=== PATIENT | female | born 1985 | race Caucasian/White ===

== ENCOUNTER 2018-02-23 22:00 | Inpatient (IN) ==
[2018-02-23 23:14] LABS: Baso # (Auto) 0.1 th/mm3 (0.0-0.2); Baso % (Auto) 0.7 % (0.0-2.0); Eos # (Auto) 0.1 th/mm3 (0.0-0.4); Eos % (Auto) 1.5 % (0.0-4.0); Hematocrit 40.9 % (35.0-46.0); Hemoglobin 14.3 gm/dL (11.6-15.3); Lymph # (Auto) 3.5 th/mm3 (1.0-4.8); Lymph % (Auto) 40.1 % (9.0-44.0); Mean Corpuscular HGB Conc 34.9 % (32.0-36.0); Mean Corpuscular Hemoglobin 31.6 pg (27.0-34.0); Mean Corpuscular Volume 90.6 fL (80.0-100.0); Mean Platelet Volume 9.8 fL (7.0-11.0); Mono # (Auto) 0.5 th/mm3 (0.0-0.9); Mono % (Auto) 5.7 % (0.0-8.0); Neut # (Auto) 4.6 th/mm3 (1.8-7.7); Platelet Count 388 th/mm3 (150-450); Red Blood Count 4.52 mil/mm3 (4.00-5.30); Red Cell Distribution Width 13.7 % (11.6-17.2); White Blood Count 8.8 th/mm3 (4.0-11.0)
[2018-02-23 23:30] LABS: Alanine Aminotransferase 91 U/L (10-53); Alcohol 150 mg/dL (0-5); Anion Gap 10 meq/L (5-15); Aspartate Aminotransferase 45 U/L (15-37); Blood Urea Nitrogen 12 mg/dL (7-18); Calcium 8.4 mg/dL (8.5-10.1); Carbon Dioxide 23.9 meq/L (21.0-32.0); Chloride 110 meq/L (98-107); Glomerular Filtration Rate 89 mL/min (>89); Glucose,Random 108 mg/dL (74-106); Magnesium 2.3 mg/dL (1.5-2.5); Sodium 144 meq/L (136-145)
[2018-02-23 23:38] LABS: Alkaline Phosphatase 78 U/L (45-117); Total Protein 7.8 g/dL (6.4-8.2)
[2018-02-24 00:57] LABS: Bacteria,Urine Few /hpf; Bilirubin,Urine Negative (Negative); Clarity,Urine Turbid (Clear); Color,Urine Yellow (Yellw/Straw); Glucose,Urine (UA) Negative (Negative); Leukocyte Esterase,Urine Large (Negative); Mucus,Urine Few /lpf (Occasional); Nitrite,Urine Negative (Negative); Specific Gravity,Urine 1.006 (1.002-1.035); Squamous Epithelial Cell,Urine 29 /hpf (0-5)
[2018-02-24 01:08] LABS: Amphetamine Screen,Urine Neg (Neg); Barbiturate Screen,Urine Neg (Neg); Cannabinoid Screen,Urine Pos (Neg); Cocaine Screen,Urine Neg (Neg)
[2018-02-24 01:18] LABS: Opiate Screen,Urine Neg (Neg)
--- NOTE | 2018-02-24 02:40 | ED ---
HPI General Chief Complaint: Psychiatric Symptoms Stated Complaint: [facility] Eval/[facility] Time Seen by Provider: 02/23/18 22:25 Source: patient and police Mode of arrival: EMS Limitations: no limitations History of Present Illness HPI Narrative: Patient presents to our facility under a [place] act by law enforcement. Patient told her mother on the phone that she wanted to kill herself. Upon arrival patient states that she is just been depressed recently but not have any plan. Patient states that she did not act upon these thoughts. MD complaint: Reports suicidal ideation Duration: constant History of same: No Relieving factors: none Exacerbating factors: none Associated symptoms: Denies confusion, headache, shortness of breath and nausea Treatments prior to arrival: Reports placed on mental health hold Related Data Home Medications Medication Instructions Recorded Confirmed mirtazapine 7.5 mg PO HS 02/23/18 02/23/18 olanzapine 2.5 mg PO HS 02/23/18 02/23/18 Allergies Allergy/AdvReac Type Severity Reaction Status Date / Time No Known Allergies Allergy Verified 02/23/18 22:29 Review of Systems ROS: all other systems reviewed are negative FORMERLY [facility], [facility]–1983 Medical History Medical History Anxiety (Acute) Bipolar disorder (Acute) Depression (Acute) Surgical History Surgical History Hx of plastic surgery (Acute) Social History Social History Substance History: No History of Abuse Second Hand Smoke Exposure: Yes Smoking Status: Current every day smoker Tobacco Type: Cigarettes How Often Do You Have a Drink Containing Alcohol: Never Recent Travel in [facility] within the Last 8 Weeks: No Recent Out of Country Travel within the Last 8 Weeks: No Immunization History Tetanus Immunization: Unsure Exam HENWV Head: normocephalic and atraumatic Nose: no nasal discharge and no epistaxis Mouth: moist mucous membranes Eyes Sclera: normal sclerae Pupils: PERRL Neck Neck: trachea midline and no JVD Resp Effort & Inspection: no use of accessory muscles Auscultation: clear to auscultation bilaterally Cardio Rate: regular rate Rhythm: regular rhythm Heart Sounds: no murmurs GI Inspection: non-distended Palpation: soft, no hepatosplenomegaly and nontender Skin General: dry skin (warm) Neuro General: alert and awake Cranial Nerves: other Speech: speech normal Motor: no movement abnormalities noted Extrem General: normal to inspection, no clubbing, no cyanosis and no edema Psych Mood: congruent mood Affect: normal affect Judgment: judgment good Course Initial Documented Vital Signs Temperature 97.9 F 02/23/18 22:31 Pulse Rate 123 H 02/23/18 22:31 Respiratory Rate 18 02/23/18 22:31 Blood Pressure 133/84 02/23/18 22:31 Pulse Oximetry 98 02/23/18 22:31 Last Documented Vital Signs Temperature 97.8 F 02/24/18 03:00 Pulse Rate 97 H 02/24/18 03:00 Respiratory Rate 16 02/24/18 03:00 Blood Pressure 110/51 L 02/24/18 03:00 Pulse Oximetry 95 02/24/18 03:00 Medical Decision Making MDM Narrative Medical decision making narrative: Patient presents to our facility under a [place] act by law enforcement. Patient told her mother on the phone that she wanted to kill herself. Upon arrival patient states that she is just been depressed recently but not have any plan. Patient states that she did not act upon these thoughts. Patient has a temperature of 97.9, pulse is 123, respiratory rate is 18, blood pressure is 133/84, pulse ox is 98 Patient received basic lab work along with a urine drug screen/tox screen Lab work is mostly unremarkable except for urine drug screen is positive for THC Patient is medically cleared at 0 100 Await psychiatric evaluation in the morning Medical Screen Exam Complete: Yes Emergency Medical Condition: Yes Lab Data Lab results reviewed: Yes I reviewed the patient's lab results. Result diagrams: 02/23/18 22:32 02/23/18 22:32 POC Results POC Urine Results Negative Lab Results 02/23/18 02/23/18 02/24/18 Range/Units 22:32 22:32 00:30 WBC 8.8 (4.0-11.0) th/mm3 RBC 4.52 (4.00-5.30) mil/mm3 Hgb 14.3 (11.6-15.3) gm/dL Hct 40.9 (35.0-46.0) % MCV 90.6 (80.0-100.0) fL MCH 31.6 (27.0-34.0) pg MCHC 34.9 (32.0-36.0) % RDW 13.7 (11.6-17.2) % Plt Count 388 (150-450) th/mm3 MPV 9.8 (7.0-11.0) fL Neut % (Auto) 52.0 (16.0-70.0) % Lymph % (Auto) 40.1 (9.0-44.0) % Lucas % (Auto) 5.7 (0.0-8.0) % Eos % (Auto) 1.5 (0.0-4.0) % Baso % (Auto) 0.7 (0.0-2.0) % Neut # (Auto) 4.6 (1.8-7.7) th/mm3 Lymph # (Auto) 3.5 (1.0-4.8) th/mm3 Lucas # (Auto) 0.5 (0.0-0.9) th/mm3 Eos # (Auto) 0.1 (0.0-0.4) th/mm3 Baso # (Auto) 0.1 (0.0-0.2) th/mm3 WBC Differential . Differential Comment Auto diff final Sodium 144 (136-145) meq/L Potassium 4.0 (3.5-5.1) meq/L Chloride 110 H (98-107) meq/L Carbon Dioxide 23.9 (21.0-32.0) meq/L Anion Gap 10 (5-15) meq/L BUN 12 (7-18) mg/dL Creatinine 0.76 (0.50-1.00) mg/dL Estimated GFR 89 (>89) mL/min Random Glucose 108 H (74-106) mg/dL Calcium 8.4 L (8.5-10.1) mg/dL Magnesium 2.3 (1.5-2.5) mg/dL Total Bilirubin 0.2 (0.2-1.0) mg/dL AST 45 H (15-37) U/L ALT 91 H (10-53) U/L Alkaline Phosphatase 78 (45-117) U/L Total Protein 7.8 (6.4-8.2) g/dL Albumin 4.0 (3.4-5.0) g/dL TSH 1.090 (0.358-3.740) uIU/mL Urine Color (Yellw/Straw) Urine Clarity (Clear) Urine pH (5.0-8.5) Ur Specific [place] (1.002-1.035) Urine Protein (Neg-Trace) mg/dL Urine Glucose (UA) (Negative) mg/dL Urine Ketones (Negative) mg/dL Urine Occult Blood (Negative) Urine Nitrate (Negative) Urine Bilirubin (Negative) Urine Urobilinogen (Less than 2) mg/dL Ur Leukocyte Esterase (Negative) Urine RBC (0-3) /hpf Urine WBC (0-5) /hpf Ur Squamous Epith Cells (0-5) /hpf Urine Bacteria (None) /hpf Urine Mucus (Occasional) /lpf Micro UA Comment Ur Microscopic Review Urine Culture Comments Urine Opiates Screen Neg (Neg) Ur Barbiturates Screen Neg (Neg) Ur Amphetamines Screen Neg (Neg) U Benzodiazepines Scrn Neg (Neg) Urine Cocaine Screen Neg (Neg) U Cannabinoids Screen Pos H (Neg) Serum Alcohol 150 H (0-5) mg/dL 02/24/18 Range/Units 00:30 WBC (4.0-11.0) th/mm3 RBC (4.00-5.30) mil/mm3 Hgb (11.6-15.3) gm/dL Hct (35.0-46.0) % MCV (80.0-100.0) fL MCH (27.0-34.0) pg MCHC (32.0-36.0) % RDW (11.6-17.2) % Plt Count (150-450) th/mm3 MPV (7.0-11.0) fL Neut % (Auto) (16.0-70.0) % Lymph % (Auto) (9.0-44.0) % Lucas % (Auto) (0.0-8.0) % Eos % (Auto) (0.0-4.0) % Baso % (Auto) (0.0-2.0) % Neut # (Auto) (1.8-7.7) th/mm3 Lymph # (Auto) (1.0-4.8) th/mm3 Lucas # (Auto) (0.0-0.9) th/mm3 Eos # (Auto) (0.0-0.4) th/mm3 Baso # (Auto) (0.0-0.2) th/mm3 WBC Differential Differential Comment Sodium (136-145) meq/L Potassium (3.5-5.1) meq/L Chloride (98-107) meq/L Carbon Dioxide (21.0-32.0) meq/L Anion Gap (5-15) meq/L BUN (7-18) mg/dL Creatinine (0.50-1.00) mg/dL Estimated GFR (>89) mL/min Random Glucose (74-106) mg/dL Calcium (8.5-10.1) mg/dL Magnesium (1.5-2.5) mg/dL Total Bilirubin (0.2-1.0) mg/dL AST (15-37) U/L ALT (10-53) U/L Alkaline Phosphatase (45-117) U/L Total Protein (6.4-8.2) g/dL Albumin (3.4-5.0) g/dL TSH (0.358-3.740) uIU/mL Urine Color Yellow (Yellw/Straw) Urine Clarity Turbid H (Clear) Urine pH 6.0 (5.0-8.5) Ur Specific [place] 1.006 (1.002-1.035) Urine Protein 30 H (Neg-Trace) mg/dL Urine Glucose (UA) Negative (Negative) mg/dL Urine Ketones Negative (Negative) mg/dL Urine Occult Blood Moderate H (Negative) Urine Nitrate Negative (Negative) Urine Bilirubin Negative (Negative) Urine Urobilinogen Less than 2 (Less than 2) mg/dL Ur Leukocyte Esterase Large H (Negative) Urine RBC 42 H (0-3) /hpf Urine WBC (0-5) /hpf Ur Squamous Epith Cells 29 (0-5) /hpf Urine Bacteria Few H (None) /hpf Urine Mucus Few H (Occasional) /lpf Micro UA Comment Culture indicated Ur Microscopic Review Not Reportable Urine Culture Comments Culture indicated Urine Opiates Screen (Neg) Ur Barbiturates Screen (Neg) Ur Amphetamines Screen (Neg) U Benzodiazepines Scrn (Neg) Urine Cocaine Screen (Neg) U Cannabinoids Screen (Neg) Serum Alcohol (0-5) mg/dL Discharge Plan Discharge Disposition Patient Disposition: Sign Out(ED Internal Use Only) Discharge Condition Condition: Stable Discharge Details Diagnosis: Suicidal ideation, UTI (urinary tract infection) Physicians Team ED Provider: Myriam Castañeda ED Midlevel Provider: Mayte Obrien Primary Care Provider: Primary Care Patrica Hayes Rxs /Orders / Referrals /Forms Prescriptions: No Action mirtazapine 7.5 mg Tablet 7.5 mg PO HS RF: 0 olanzapine 2.5 mg Tablet 2.5 mg PO HS RF: 0 Status ED Status: Medically Cleared
[2018-02-24] MEDS ORDERED: Nitrofurantoin Monohydrate-Macrocrystal 100 MG Capsule PO ONE (02:46)
[2018-02-24] MEDS ORDERED: LORazepam 1 MG Tablet PO PRN (09:42)
[2018-02-24] MEDS ORDERED: Bisacodyl 10 MG Supp RECTAL PRN (09:42)
[2018-02-24] MEDS ORDERED: Haloperidol Inj 5 MG/ML Ampul IV.PUSH PRN (09:42)
[2018-02-24] MEDS ORDERED: Aluminum/Magnesium/Simethacone Susp 30 ML UDC PO PRN (09:42)
--- NOTE | 2018-02-24 12:54 | P.HPPSY ---
Provisional Diagnosis Admission Date: February 24, 2018 09:42 [place].: Unspecified psychosis, r/o schizophrenia, r/o schizoaffective disorder, cannabis and alcohol use disorder Competence Certification of Person's Competence To Provide Express and Informed Consent I have personally examined Tierney Ling, a person being served at [facility] on, February 24, 2018 1241. Express and informed consent means consent voluntarily given in writing, by a competent person, after sufficient explanation and disclosure of the subject matter involved to enable the person to make a knowing and willful decision without any element of force, fraud, deceit, duress, or other form of constraint or coercion. This person is 18 years of age or older, is not now known to be incompetent to consent to treatment with a guardian advocate, and does not have a health care surrogate or proxy currently making medical treatment decisions. I have found this person to be one of the following: [] Competent to provide express and informed consent, as defined above, for voluntary admission to this facility and is competent to provide express and informed consent for treatment. He/she has the consistent capacity to make well reasoned, willful, and knowing decisions concerning his or her medical or mental health treatment. The person fully and consistently understands the purpose of the admission for examination/placement and is fully capable of personally exercising all rights assured under [place] [] Incompetent to provide express and informed consent to voluntary admission, and this is incompetent to provide express and informed consent to treatment. The person must be transferred to involuntary status and a petition for a guardian advocate filed with the Circuit Court. [x] Refusing to provide express and informed consent to voluntary admission but is competent to provide express and informed consent for treatment. The person must be discharged or transferred to involuntary status. Form shall be completed within 24 hours of a person's arrival at the receiving facility and filed in the clinical record of each person: 1. Admitted on a voluntary basis 2. Permitted to provide express and informed consent to his/her own treatment 3. Allowed to transfer from involuntary to voluntary status 4. Prior to permitting a person to consent to his or her own treatment after having been previously found incompetent to consent to treatment. History of Present Illness Capacity: Has capacity History of Present Illness: The patient is a 32-year-old woman, domiciled along in [facility], single , unemployed, supported by [facility], first time at [place], with a reported psychiatric history of schizoaffective disorder vs schizophrenia, alcohol and cannabis use disorder, 3 previous psychiatric hospitalizations, last hospitalization was in 2017 in [place], no previous suicidal attempts, she has history of catatonia, outpatient care with Dr. Guerrero, she is on olanzapine 2.5 mg twice daily, Remeron 7.5 mg, Xanax 0.5 mg 3 times daily, no significant medical history, who presents to our facility under a Callahan act by law enforcement. Patient told her mother on the phone that she wanted to kill herself. Upon arrival on initial ER assessment patient states that she is just been depressed recently but not have any plan. Patient states that she did not act upon these thoughts. Chart was reviewed. Her labs are significant for a UTI. BAL was 150, U tox positive for cannabis. Case was widely discussed with ER staff. Collateral information from her mother was obtained. On my psychiatric evaluation the patient is initially calm, cooperative, even though she seems to be superficial, distant with a significant flat affect. The patient reports that she does not understand the reason she is in the hospital. She says that she was talking by phone to her mother about showing that the TV and all of the sudden the police arrived in her house. She says that she has not expressed any suicidal or homicidal ideation. She says that all that she was sent to her mother is that I do not understand why celebrities making so much money can get Nya and be together and get divorce so easily. She is starts saying that she follows celebrities life very closely, some of these deliveries a good friends, but when I asked her about details about this friendship she immediately changed the topic. She says that she has been very preoccupied because she has a mole in her leg which is most probably the product of a conspiracy theory, but again when I asked her details about this conspiracy she immediately becomes quite guarded and stopped talking. She is fully oriented x3. There is no attention deficit, no fluctuation of consciousness. Her thought process is mostly linear, goal-directed, but paranoid, bizarre, somatic and grandiose delusion are present. Patient seems to have a very poor insight of her psychiatric illness, stating that she does not have any other problem other than depression. She does report to be concerned about vaginal discharge. Collateral information from her mother was obtained, Jesi Ling, [phone]. She clarifies that the reason she called the police last night is because her daughter called her stating that the government with the FBI and [employer] were implanting eggs in her ovaries "from aliens". She was also saying that she was communicating with Hari Kern and stating that he is the only person who can understand her situation. The patient was very disorganized over the phone also talking about "celebrities that she knows". The mother immediately noted that the patient was decompensated. She clarifies that the patient has been admitted 3 times in the past due to psychosis and catatonia. She has never been diagnosed with a precise psychiatric illness. Schizophrenia , bipolar disorder, schizoaffective disorder have been illness mentioned by previous psychiatrist. She clarifies that her first hospitalization was a 24 years old to a psychotic break in which the patient was not eating, no leaving her room, not expressing any emotions, not talking, was very paranoid and was admitted due to catatonia. She says that the patient has recently moved to [place] from [place] to have more freedom and a better life. She was against this idea she was afraid for this moment in which she will decompensate and now there is no family around her. The mother describes the patient as a very smart lady who is graduated of [employer], she had a good job in the [employer] until she became disabled. The mother clarifies that she is on her way to [place]. PPHx: reported psychiatric history of schizoaffective disorder vs schizophrenia , alcohol and cannabis use disorder, 3 previous psychiatric hospitalizations, last hospitalization was in 2017 in [place], no previous suicidal attempts, she has history of catatonia, outpatient care with Dr. Guerrero, she is on olanzapine 2.5 mg twice daily, Remeron 7.5 mg, Xanax 0.5 mg 3 times daily PMHx: no significant medical history, Family Hx: Grandmother had schizophrenia Substance Hx: Reports occasional use of marijuana and alcohol Social Hx: She was born and raised in [place], she has been living in [facility] by herself for about 8 months, she is single, unemployed, supported by [facility], she is college graduate. - Inpatient Certification I certify that the inpatient services were ordered in accordance with Medicare regulations governing the order. This includes certification that hospital inpatient services are reasonable and necessary and in the case of services not specified as inpatient-only under 42 CFR 419.22(n), that they are appropriately provided as inpatient services in accordance to with the 2-midnight benchmark under 43 CFR 412.3(e) I certify that inpatient psychiatric hospital services are medically necessary. Evaluation and treatment and/or diagnostic testing are expected to improve the patient's condition. The patient needs on a daily basis, active treatment furnished directly by or requiring the supervision of inpatient psychiatric facility personnel. Estimated Total Length of Stay (Days): 7 Plans for Post Hospital Care: Home Review of Systems All other systems reviewed negative except as stated in HPI Psychiatric: Reports paranoia (Flat affect, internally) PMFSH - History History Provided By: Patient - Medical History Medical History: Medical History (Last Reviewed 02/24/18 @ 02:38 by Mayte Obrien) Anxiety Bipolar disorder Depression - Surgical History Surgical History: Surgical History (Last Reviewed 02/24/18 @ 02:38 by Mayte Obrien) Hx of plastic surgery - Tobacco History Second Hand Smoke Exposure: Yes Tobacco Use In Past 30 Days: Yes Smoking Status: Current every day smoker Tobacco Type: Cigarettes - Alcohol History How Often Do You Have a Drink Containing Alcohol: Never - Substance Use History Substance History: No History of Abuse - Travel History Recent Travel in the [place] Within the Last 8 Weeks: No Recent Travel Out of the Country Within the Last 8 Weeks: No - Immunization History Tetanus Immunization: Unsure Medications and Allergies Active Medications: Active Medications Al Hydrox/Mg Hydrox/Simethicone (Mag-Al Plus Susp Liq) 30 ml PO Q6H PRN PRN Reason: DYSPEPSIA Al Hydroxide/Mg Hydroxide (Milk Of Magnesia Liq) 30 ml PO Q12H PRN PRN Reason: Mild Constipation Bisacodyl (Dulcolax Supp) 10 mg RECTAL DAILY PRN PRN Reason: SEVERE CONSITIPATION Flumazenil (Romazicon Inj) 0.2 mg IV.PUSH Q1M PRN PRN Reason: OVERSEDATION Haloperidol Lactate (Haldol Inj) 1 mg IV.PUSH Q15M PRN PRN Reason: for severe agitation Lactulose (Lactulose Liq) 30 ml PO DAILY PRN PRN Reason: SEVERE CONSITIPATION Lorazepam (Ativan) 1 mg PO Q4H PRN PRN Reason: for CIWA 8-10 Lorazepam (Ativan) 2 mg PO Q2H PRN PRN Reason: for CIWA 11-14 Lorazepam (Ativan Inj) 2 mg IV.PUSH Q2H PRN PRN Reason: for CIWA 11-14 Lorazepam (Ativan Inj) 2 mg IV.PUSH Q1H PRN PRN Reason: for CIWA 15-20 Lorazepam (Ativan Inj) 2 mg IV.PUSH Q15M PRN PRN Reason: for CIWA > 20 Lorazepam (Ativan Inj) 1 mg IV.PUSH Q4H PRN PRN Reason: for CIWA 8-10 Mirtazapine (Remeron) 7.5 mg PO HS BRANDON Miscellaneous (Pill Splitter) 1 each OTHER UNSCH PRN PRN Reason: SEE LABEL COMMENTS Nicotine (Habitrol 7 Mg Patch.24 Hr) 1 patch T-DERMAL DAILY BRANDON Nitrofurantoin Macrocrystals (Macrobid) 100 mg PO BIDPC BRANDON Olanzapine (Zyprexa) 2.5 mg PO HS BRANDON Senna/Docusate Sodium (Inocencia-Colace) 1 tab PO BID BRANDON Sennosides (Senokot) 17.2 mg PO Q12H PRN PRN Reason: Moderate Constipation Allergies Allergy/AdvReac Type Severity Reaction Status Date / Time No Known Allergies Allergy Verified 02/23/18 22:29 Home Medications Medication Instructions Recorded Confirmed Type mirtazapine 7.5 mg PO HS 02/23/18 02/23/18 History olanzapine 2.5 mg PO HS 02/23/18 02/23/18 History Results - Labs CBC & Chem 7: 02/23/18 22:32 02/23/18 22:32 Labs: Laboratory Results - last 24 hr 02/23/18 02/23/18 02/24/18 22:32 22:32 00:30 WBC 8.8 RBC 4.52 Hgb 14.3 Hct 40.9 MCV 90.6 MCH 31.6 MCHC 34.9 RDW 13.7 Plt Count 388 MPV 9.8 Neut % (Auto) 52.0 Lymph % (Auto) 40.1 [place] % (Auto) 5.7 Eos % (Auto) 1.5 Baso % (Auto) 0.7 Neut # (Auto) 4.6 Lymph # (Auto) 3.5 [place] # (Auto) 0.5 Eos # (Auto) 0.1 Baso # (Auto) 0.1 WBC Differential . Differential Comment Auto diff final Sodium 144 Potassium 4.0 Chloride 110 H Carbon Dioxide 23.9 Anion Gap 10 BUN 12 Creatinine 0.76 Estimated GFR 89 Random Glucose 108 H Calcium 8.4 L Magnesium 2.3 Total Bilirubin 0.2 AST 45 H ALT 91 H Alkaline Phosphatase 78 Total Protein 7.8 Albumin 4.0 TSH 1.090 Urine Color Urine Clarity Urine pH Ur Specific [place] Urine Protein Urine Glucose (UA) Urine Ketones Urine Occult Blood Urine Nitrate Urine Bilirubin Urine Urobilinogen Ur Leukocyte Esterase Urine RBC Urine WBC Ur Squamous Epith Cells Urine Bacteria Urine Mucus Micro UA Comment Ur Microscopic Review Urine Culture Comments Urine Opiates Screen Neg Ur Barbiturates Screen Neg Ur Amphetamines Screen Neg U Benzodiazepines Scrn Neg Urine Cocaine Screen Neg U Cannabinoids Screen Pos H Serum Alcohol 150 H 02/24/18 00:30 WBC RBC Hgb Hct MCV MCH MCHC RDW Plt Count MPV Neut % (Auto) Lymph % (Auto) [place] % (Auto) Eos % (Auto) Baso % (Auto) Neut # (Auto) Lymph # (Auto) [place] # (Auto) Eos # (Auto) Baso # (Auto) WBC Differential Differential Comment Sodium Potassium Chloride Carbon Dioxide Anion Gap BUN Creatinine Estimated GFR Random Glucose Calcium Magnesium Total Bilirubin AST ALT Alkaline Phosphatase Total Protein Albumin TSH Urine Color Yellow Urine Clarity Turbid H Urine pH 6.0 Ur Specific [place] 1.006 Urine Protein 30 H Urine Glucose (UA) Negative Urine Ketones Negative Urine Occult Blood Moderate H Urine Nitrate Negative Urine Bilirubin Negative Urine Urobilinogen Less than 2 Ur Leukocyte Esterase Large H Urine RBC 42 H Urine WBC Ur Squamous Epith Cells 29 Urine Bacteria Few H Urine Mucus Few H Micro UA Comment Culture indicated Ur Microscopic Review Not Reportable Urine Culture Comments Culture indicated Urine Opiates Screen Ur Barbiturates Screen Ur Amphetamines Screen U Benzodiazepines Scrn Urine Cocaine Screen U Cannabinoids Screen Serum Alcohol Exam Vital signs: Vital Signs 02/23/18 22:31 02/24/18 03:00 02/24/18 10:09 Temperature 97.9 F 97.8 F 98.4 F Pulse Rate 123 H 97 H 108 H Respiratory Rate 18 16 18 Blood Pressure 133/84 110/51 L 125/60 Pulse Oximetry 98 95 97 Intake & Output 02/23/18 02/24/18 02/24/18 18:59 06:59 18:59 Weight 61.235 kg Narrative: No tremors, no EPS, no withdrawal symptoms, no gait disturbance, no psychomotor agitation or retardation, no catatonic symptoms - Constitutional no acute distress, mild distress - Routine HEENT Exam Head: Present: normocephalic, atraumatic Eye: Present: EOMI, PERRL ENT: Present: mucous membranes moist Mental Status Examination Appearance: Appropriate Consciousness: Alert Orientation: x4 Motor Activity: Normal gait Speech: Unremarkable Language: Adequate Fund of Knowledge: Adequate Attention and Concentration: Adequate Memory: Unremarkable Mood: Appropriate, Oppositional Affect: Flat Thought Process & Associations: Goal directed Thought Content: Bizarre thinking Hallucination Type: None Delusion Type: Bizarre, Somatic, Other (Grandeur) Suicidal Ideation: No Suicidal Plan: No Suicidal Intention: No Homicidal Ideation: No Homicidal Plan: No Homicidal Intention: No Insight: Poor Judgment: Poor Assessment and Plan - Assessment (1) Unspecified psychosis Code(s): F29 - Unspecified psychosis not due to a substance or known physiological condition Status: Acute - Plan Plan: On psychiatric evaluation today the patient presents with a prominent flat affect, internally preoccupied, with grandeur, paranoid and also somatic delusions. Patient has been stating that government, [employer] and FBI want to implant eggs in her ovaries, also that she is friends with celebrities and with Hari Kern. As per mother the patient is quite decompensated of her psychotic illness and very far from baseline. She does present quite logical and goal-directed thought process and she is able to present herself very well at a superficial level, but with some stress and confrontation her psychosis emerge. The patient has a psychiatric history of schizophrenia versus schizoaffective disorder, cannabis and alcohol use disorder, 3 previous psychiatric hospitalizations, no suicidal attempts, history of catatonia, she has an established outpatient care here in [facility] with , she has being in very low doses of psychotropics, olanzapine 2.5 mg, Remeron 7.5 mg, Xanax 0.5 mg 3 times daily. Given her psychotic symptoms the patient has elevated risk of danger to self and others, she will be admitted in psychiatry for stabilization and safety. Patient will be admitted in 2600 unit We will restart olanzapine 2.5 mg twice daily, Remeron 7.5 mg daily Will order EKG Order CIWA protocol for potential withdrawal symptoms of alcohol and benzo as a We will consult hospitalist for UTI and vaginal discharge Will consult psychiatry for second opinion Support, motivation, psychoeducation provided adz worker intervention for psychosocial assessment, additional collateral information, the visual and group therapies, to coordinate safe discharge Justification for Continued Inpatient Stay: To be admitted to psychiatry
[2018-02-24] MEDS: Nitrofurantoin Monohydrate-Macrocrystal 100 MG Capsule PO SCH ×2 (15:10→18:02)
[2018-02-24] MEDS ORDERED: OLANZapine 2.5 MG Tablet PO SCH (21:00)
[2018-02-24] MEDS: Mirtazapine 15 MG Tablet PO SCH (21:22)
[2018-02-24] MEDS: Senna/Docusate Sodium 8.6/50 MG Tablet PO SCH (22:40)
[2018-02-25] MEDS: Nitrofurantoin Monohydrate-Macrocrystal 100 MG Capsule PO SCH ×3 (08:50→17:38)
[2018-02-25] MEDS: Senna/Docusate Sodium 8.6/50 MG Tablet PO SCH ×2 (08:51→23:02)
[2018-02-25 10:57] LABS: Anion Gap 5 meq/L (5-15); Blood Urea Nitrogen 12 mg/dL (7-18); Carbon Dioxide 31.8 meq/L (21.0-32.0); Chloride 105 meq/L (98-107); Cholesterol 186 mg/dL (120-200); Glomerular Filtration Rate Greater Than 89 mL/min (>89); Glucose,Random 58 mg/dL (74-106); Potassium 4.1 meq/L (3.5-5.1); Sodium 142 meq/L (136-145); Triglycerides 123 mg/dL (42-150)
[2018-02-25 10:59] LABS: Chol/HDL Ratio 3.54 Ratio; HDL Cholesterol 52.5 mg/dL (40.0-60.0); LDL Cholesterol,Calculated 109 mg/dL (0-99)
[2018-02-25] MEDS ORDERED: Acetaminophen 325 MG Tablet PO PRN (14:12)
--- NOTE | 2018-02-25 14:20 | P.PNPSY ---
Subjective Remarks: Patient initially seen and admitted by Dr. Marsh's H&P reviewed and agreed with. Dr. Marsh is signed first opinion petition supporting Callahan act. I agree. I will cosign second opinion petition supporting Callahan act. Patient seen by me with floor staff in her room she is alert oriented calm cooperative white female appears slightly younger than his stated age. She is oriented x4 she denies suicidality or homicidality voices or visions. States she is on disability due to her mental illness. This is moved down here from [place] a couple of years ago. There is a with a dog and 2 cats. He does see his psychiatrist who prescribes her medication. In the ED urine toxicology is positive for marijuana blood alcohol level of 150. When asked about her marijuana use she minimizes that she may use it occasionally on the weekends. When asked about the alcohol use she states currently drinking a couple of beers while watching a football game. Though she denies detox rehab or legal issues related to alcohol or other drugs.. We discussed treatment. I will increase the at bedtime Zyprexa from 2.5-5 mg. We will continue the Remeron no change. We will discontinue the ciwa protocol. I will lift the Callahan act at this time I feel patient does have capacity to sign for this admission. We will allow her to sign voluntary. Consider discharge in 24-48 hours Review of Systems All other systems reviewed negative except as stated in HPI Mental Status Examination Appearance: Appropriate Consciousness: Alert Orientation: x4 Motor Activity: Normal gait Speech: Unremarkable Language: Adequate Fund of Knowledge: Adequate Attention and Concentration: Adequate Memory: Unremarkable Mood: Appropriate, Other (Somewhat defensive) Affect: Other (Good range and intensity) Thought Process & Associations: Goal directed Thought Content: Bizarre thinking (Markedly decreased) Hallucination Type: None Suicidal Ideation: No Suicidal Plan: No Suicidal Intention: No Homicidal Ideation: No Homicidal Plan: No Homicidal Intention: No Insight: Fair Judgment: Impulsive Assessment and Plan - Assessment (1) Unspecified psychosis Code(s): F29 - Unspecified psychosis not due to a substance or known physiological condition Status: Acute (2) Alcohol abuse Code(s): F10.10 - Alcohol abuse, uncomplicated Status: Acute (3) Marijuana abuse Code(s): F12.10 - Cannabis abuse, uncomplicated Status: Acute - Plan Plan: Patient is some what more focused calm and cooperative, denying suicidality or homicidality voices or visions. We will adjust patient's Zyprexa to 5 mg at at bedtime. We will allow the patient sign voluntary. Consider discharge 24-48 hours if she continues to improve with referral also to a substance abuse assessment counseling Justification for Continued Inpatient Stay: At this time patient with decompensated placed in a lower level of care Discharge Planning: Return to her own apartment Request Healthcare Surrogate/Guardian Advocate?: No
[2018-02-25 16:04] LABS: Hemoglobin A1c 5.1 % (4.3-6.0)
--- NOTE | 2018-02-25 16:27 | P.CON ---
History of Present Illness Service: [facility] Consult date: 02/25/18 Requesting Physician: Garry Guan Reason for Consult: Medical management, vaginal discharge, dysuria UTI Primary Care Provider: No Primary Care Physician Chief Complaint: vaginal discharge, painful urination History of Present Illness: This is a 32-year-old female with no significant past medical history other than vaginal herpes, schizoaffective disorder, schizophrenia, depression, previous psychiatric hospitalizations. Patient brought into ED under [place] act. Apparently patient told her mother she wanted to kill herself. Patient was evaluated, she is now admitted to inpatient psych. Laboratory workup was done, she was found positive for UTI and started on Macrobid. Urine tox screen was positive for marijuana, alcohol level was 150. Hospitalist services are consulted for medical management. Patient complained of dysuria, has vaginal discharge that is why, no itching. Has history of genital herpes, indicates that her last outbreak was in the summer and usually takes Valtrex. She feels she has herpes lesions. Denies any fever, no chills. Denies being sexually active. Last menstrual period was 2 weeks ago. Denies any changes in bowel movement, no diarrhea. No chest pain, shortness of breath. Endorses a good appetite. Review of Systems All other systems reviewed negative except as stated in HPI PMFSH - History History Provided By: Patient - Medical History Medical History: Medical History (Last Reviewed 02/25/18 @ 17:50 by MAT Caballero) Anxiety Bipolar disorder Depression Genital herpes - Surgical History Surgical History: Surgical History (Last Reviewed 02/25/18 @ 17:50 by MAT Caballero) Hx of plastic surgery - Family History Family History: Family History (Last Reviewed 02/25/18 @ 17:50 by MAT Caballero) Other Family history normal - Social History I have reviewed the patient's Social History: Yes - Tobacco History Second Hand Smoke Exposure: No Tobacco Use In Past 30 Days: Yes Smoking Status: Light tobacco smoker Tobacco Type: Cigarettes - Alcohol History How Often Do You Have a Drink Containing Alcohol: Monthly or less - Substance Use History Substance History: Active Abuse - Substance Use Type Alcohol Status: Active Route Used: By Mouth Frequency: Pt reports 3x a month, however tox screen was 150 Reason for Use: Calm Down, Feels Good Marijuana Status: Active Route Used: By Mouth Frequency: Pt stated she only does it sometimes Reason for Use: Calm Down, Increase Energy Level - Travel History Recent Travel in the [place] Within the Last 8 Weeks: No Recent Travel Out of the Country Within the Last 8 Weeks: No - Immunization History Tetanus Immunization: Unsure Hx Influenza Vaccine This Season: No Medications and Allergies Active Medications: Active Medications Acetaminophen (Tylenol) 650 mg PO Q4H PRN PRN Reason: Pain 1-5 or Temp >101F Al Hydrox/Mg Hydrox/Simethicone (Mag-Al Plus Susp Liq) 30 ml PO Q6H PRN PRN Reason: DYSPEPSIA Al Hydroxide/Mg Hydroxide (Milk Of Magnesia Liq) 30 ml PO Q12H PRN PRN Reason: Mild Constipation Bisacodyl (Dulcolax Supp) 10 mg RECTAL DAILY PRN PRN Reason: SEVERE CONSITIPATION Diphenhydramine HCl (Benadryl) 50 mg PO HS PRN PRN Reason: INSOMNIA Flumazenil (Romazicon Inj) 0.2 mg IV.PUSH Q1M PRN PRN Reason: OVERSEDATION Haloperidol Lactate (Haldol Inj) 1 mg IV.PUSH Q15M PRN PRN Reason: for severe agitation Hydroxyzine HCl (Atarax) 50 mg PO Q6H PRN PRN Reason: ANXIETY Lactulose (Lactulose Liq) 30 ml PO DAILY PRN PRN Reason: SEVERE CONSITIPATION Lorazepam (Ativan) 2 mg PO Q2H PRN PRN Reason: for CIWA 14 Mirtazapine (Remeron) 7.5 mg PO [facility] Last Admin: 02/24/18 21:22 Dose: 7.5 mg Miscellaneous (Pill Splitter) 1 each OTHER UNSCH PRN PRN Reason: SEE LABEL COMMENTS Nicotine (Habitrol 7 Mg Patch.24 Hr) 1 patch T-DERMAL DAILY [facility] Last Admin: 02/25/18 08:50 Dose: Not Given Nitrofurantoin [facility]) [facility] Last Admin: 02/25/18 08:50 Dose: 100 mg Olanzapine (Zyprexa) 5 mg PO [facility] Senna/Docusate Sodium (Inocencia-Colace) 1 tab PO BID [facility] Last Admin: 02/25/18 08:51 Dose: Not Given Sennosides (Senokot) 17.2 mg PO Q12H PRN PRN Reason: Moderate Constipation Allergies Allergy/AdvReac Type Severity Reaction Status Date / Time No Known Allergies Allergy Verified 02/23/18 22:29 Home Medications Medication Instructions Recorded Confirmed Type mirtazapine 7.5 mg PO HS 02/23/18 02/23/18 History olanzapine 2.5 mg PO HS 02/23/18 02/23/18 History Physical Exam Vital signs: Vital Signs 02/24/18 17:43 02/25/18 05:45 Temperature 98.5 F 97.7 F Pulse Rate 76 86 Respiratory Rate 18 16 Blood Pressure 130/76 115/75 Pulse Oximetry 97 98 Intake & Output 02/24/18 02/25/18 02/25/18 18:59 06:59 18:59 Intake Total 1320 / 1320 Balance 1320 / 1320 Weight 73.5 kg 74.3 kg Intake: Oral 1320 / 1320 Other: Date of Last Bowel Movement 02/24/18 02/24/18 Weight On Admission 73.5 kg Narrative: GENERAL: Well-nourished, well-developed patient in no apparent distress. SKIN: Warm and dry. HEAD: Atraumatic. Normocephalic. EYES: Pupils equal and round. No scleral icterus. No injection or drainage. ENT: No nasal bleeding or discharge. Mucous membranes pink and moist. NECK: Trachea midline. No JVD. CARDIOVASCULAR: Regular rate and rhythm. RESPIRATORY: No accessory muscle use. Clear to auscultation. Breath sounds equal bilaterally. GASTROINTESTINAL: Abdomen soft, non-tender, nondistended. Hepatic and splenic margins not palpable. : External genitalia noted with white discharge, no erythema, no lesions noted. MUSCULOSKELETAL: Extremities without clubbing, cyanosis, or edema. No obvious deformities. NEUROLOGICAL: Awake and alert. No obvious cranial nerve deficits. Motor grossly within normal limits. Five out of 5 muscle strength in the arms and legs. Normal speech. PSYCHIATRIC: Appropriate mood and affect; insight and judgment normal. Results - Labs CBC & Chem 7: 02/23/18 22:32 02/25/18 09:14 Labs: Laboratory Results - last 24 hr 02/25/18 09:14 Sodium 142 Potassium 4.1 Chloride 105 Carbon Dioxide 31.8 Anion Gap 5 BUN 12 Creatinine 0.75 Estimated GFR Greater than 89 Random Glucose 58 L Calcium 9.0 Triglycerides 123 Cholesterol 186 LDL Cholesterol, Calc 109 H HDL Cholesterol 52.5 Cholesterol/HDL Ratio 3.54 Assessment and Plan - Plan 32-year-old white female brought in under [place] act for suicidal ideation. History of depression, schizoaffective disorder, schizophrenia, catatonia. Planes of dysuria, vaginal discharge. History of genital herpes. Hospital services consulted for medical management Suicidal ideation Substance abuse, positive for marijuana EtOH abuse -Continue with psychiatric care -[facility] protocol -Monitor for withdrawal symptoms. Reported dysuria, bacteriuria UC immature growth Has vaginal discharge, likely Bacterial Vaginosis -DC Macrobid -will start Flagyl 500 mg PO BID x 7 days. No alcohol while on medication if she is discharged. Hx of genital herpes C/O lesions, none visualized during examination Last used Valtrex summer 2017 -f/u with PCP as OP -will not initiate at this time. -safe sex practice emphasized Substance abuse, + marijuana Pt. denies use UDT positive -Counseling done. Plan of care discussed with patient, RN. Thank you for this consultation. We will sign off at this time, reconsult if needed Code Status: Full code Discussed Condition With: RN, pt Discharge Planning: Per psych team
[2018-02-25] MEDS: Mirtazapine 15 MG Tablet PO SCH (23:02)
[2018-02-25] MEDS: metroNIDAZOLE 500 MG Tablet PO SCH (23:02)
[2018-02-26 06:13] VITALS: BP 139/60; PULSE 60; RESP 15; TEMP 97.6; O2SAT 90
[2018-02-26] MEDS: metroNIDAZOLE 500 MG Tablet PO SCH (08:27)
[2018-02-26] MEDS: Senna/Docusate Sodium 8.6/50 MG Tablet PO SCH (08:28)
--- NOTE | 2018-02-26 10:02 | P.DSPSY ---
Psychiatry Discharge Summary Inpatient Psychiatric care?: Yes Advance Directives: No Mental Health Advance Directive: No Health Care Proxy: No - Admission Admission Date: February 24, 2018 09:42 - Admission Diagnosis (1) Unspecified psychosis Code(s): F29 - Unspecified psychosis not due to a substance or known physiological condition (2) Alcohol abuse Code(s): F10.10 - Alcohol abuse, uncomplicated (3) Marijuana abuse Code(s): F12.10 - Cannabis abuse, uncomplicated Brief History: The patient is a 32-year-old woman, domiciled along in [facility], single , unemployed, supported by [facility], first time at [place], with a reported psychiatric history of schizoaffective disorder vs schizophrenia, alcohol and cannabis use disorder, 3 previous psychiatric hospitalizations, last hospitalization was in 2017 in [place], no previous suicidal attempts, she has history of catatonia, outpatient care with Dr. Guerrero, she is on olanzapine 2.5 mg twice daily, Remeron 7.5 mg, Xanax 0.5 mg 3 times daily, no significant medical history, who presents to our facility under a [place] act by law enforcement. Patient told her mother on the phone that she wanted to kill herself. Upon arrival on initial ER assessment patient states that she is just been depressed recently but not have any plan. Patient states that she did not act upon these thoughts. Chart was reviewed. Her labs are significant for a UTI. BAL was 150, U tox positive for cannabis. Case was widely discussed with ER staff. Collateral information from her mother was obtained. On my psychiatric evaluation the patient is initially calm, cooperative, even though she seems to be superficial, distant with a significant flat affect. The patient reports that she does not understand the reason she is in the hospital. She says that she was talking by phone to her mother about showing that the TV and all of the sudden the police arrived in her house. She says that she has not expressed any suicidal or homicidal ideation. She says that all that she was sent to her mother is that I do not understand why celebrities making so much money can get Nya and be together and get divorce so easily. She is starts saying that she follows celebrities life very closely, some of these deliveries a good friends, but when I asked her about details about this friendship she immediately changed the topic. She says that she has been very preoccupied because she has a mole in her leg which is most probably the product of a conspiracy theory, but again when I asked her details about this conspiracy she immediately becomes quite guarded and stopped talking. She is fully oriented x3. There is no attention deficit, no fluctuation of consciousness. Her thought process is mostly linear, goal-directed, but paranoid, bizarre, somatic and grandiose delusion are present. Patient seems to have a very poor insight of her psychiatric illness, stating that she does not have any other problem other than depression. She does report to be concerned about vaginal discharge. Collateral information from her mother was obtained, Jesi Ling, [phone]. She clarifies that the reason she called the police last night is because her daughter called her stating that the government with the FBI and [employer] were implanting eggs in her ovaries "from aliens". She was also saying that she was communicating with Hari Kern and stating that he is the only person who can understand her situation. The patient was very disorganized over the phone also talking about "celebrities that she knows". The mother immediately noted that the patient was decompensated. She clarifies that the patient has been admitted 3 times in the past due to psychosis and catatonia. She has never been diagnosed with a precise psychiatric illness. Schizophrenia , bipolar disorder, schizoaffective disorder have been illness mentioned by previous psychiatrist. She clarifies that her first hospitalization was a 24 years old to a psychotic break in which the patient was not eating, no leaving her room, not expressing any emotions, not talking, was very paranoid and was admitted due to catatonia. She says that the patient has recently moved to [place] from [place] to have more freedom and a better life. She was against this idea she was afraid for this moment in which she will decompensate and now there is no family around her. The mother describes the patient as a very smart lady who is graduated of [employer], she had a good job in the [employer] until she became disabled. The mother clarifies that she is on her way to [place]. PPHx: reported psychiatric history of schizoaffective disorder vs schizophrenia , alcohol and cannabis use disorder, 3 previous psychiatric hospitalizations, last hospitalization was in 2017 in [place], no previous suicidal attempts, she has history of catatonia, outpatient care with Dr. Guerrero, she is on olanzapine 2.5 mg twice daily, Remeron 7.5 mg, Xanax 0.5 mg 3 times daily PMHx: no significant medical history, Family Hx: Grandmother had schizophrenia Substance Hx: Reports occasional use of marijuana and alcohol Social Hx: She was born and raised in [place], she has been living in [facility] by herself for about 8 months, she is single, unemployed, supported by [facility], she is college graduate. Tobacco Use In Past 30 Days: Yes How Often Do You Have a Drink Containing Alcohol: Monthly or less Hospital Course: Patient's hospital course was uneventful today patient calm cooperative denies suicidality or homicidality voices or visions. It appears patient was seen by the medicine service and complaining of vaginitis. He has been prescribed Flagyl by the medical service. Otherwise patient today is able contract to do no harm to safe being discharged she is back on her medication. She will be going with her mother. Following up with Dr. Murillo thus patient will be discharged today to herself with Rx times 1 month Rx for the Flagyl times 7 days - Discharge Discharge Date: 02/26/18 - Discharge Diagnosis (1) Unspecified psychosis Diagnosis: Principal Code(s): F29 - Unspecified psychosis not due to a substance or known physiological condition Status: Acute (2) Alcohol abuse Diagnosis: Secondary Code(s): F10.10 - Alcohol abuse, uncomplicated Status: Acute (3) Marijuana abuse Diagnosis: Secondary Code(s): F12.10 - Cannabis abuse, uncomplicated Status: Acute Discharge Disposition: Home - Discharge Instructions Discharge Diet: Regular Diet Activities You Can Perform: Regular- No Restrictions - Discharge Time > 30 minutes Mental Status Examination Appearance: Appropriate Consciousness: Alert Orientation: x4 Motor Activity: Normal gait Speech: Unremarkable Language: Adequate Fund of Knowledge: Adequate Attention and Concentration: Adequate Memory: Unremarkable Mood: Appropriate, Other (Somewhat defensive) Affect: Other (Good range and intensity) Thought Process & Associations: Goal directed Thought Content: Bizarre thinking (Markedly decreased) Hallucination Type: None Delusion Type: Bizarre, Somatic, Other (Grandeur) Suicidal Ideation: No Suicidal Plan: No Suicidal Intention: No Homicidal Ideation: No Homicidal Plan: No Homicidal Intention: No Insight: Fair Judgment: Impulsive Discharge/Advance Care Plan - Results Vital Signs: Last Vital Signs Temp 97.6 F 02/26/18 06:12 Pulse 60 02/26/18 06:12 Resp 15 02/26/18 06:12 BP 139/60 02/26/18 06:12 Pulse Ox 90 L 02/26/18 06:12 Lab Results: Abnormal Lab Results 02/25/18 02/25/18 09:14 09:14 Sodium 142 Potassium 4.1 Chloride 105 Carbon Dioxide 31.8 Anion Gap 5 BUN 12 Creatinine 0.75 Estimated GFR Greater than 89 Random Glucose 58 L Hemoglobin A1c 5.1 Calcium 9.0 Triglycerides 123 Cholesterol 186 LDL Cholesterol, Calc 109 H HDL Cholesterol 52.5 Cholesterol/HDL Ratio 3.54 Laboratory Results Hemoglobin A1c 5.1 % (4.3-6.0) 02/25/18 09:14 Triglycerides 123 mg/dL (42-150) 02/25/18 09:14 Cholesterol 186 mg/dL (120-200) 02/25/18 09:14 LDL Cholesterol, Calc 109 mg/dL (0-99) H 02/25/18 09:14 HDL Cholesterol 52.5 mg/dL (40.0-60.0) 02/25/18 09:14 TSH 1.090 uIU/mL (0.358-3.740) 02/23/18 22:32 Urine Culture Comments Culture indicated 02/24/18 00:30 Summary of Procedures: None done Pending Results: None - Medications Number of antipsychotic medications at discharge: 1 - Discharge Care Plan Goals to Promote Your Health: * To prevent worsening of your condition and complications * To maintain your health at the optimal level Directions to Meet Your Goals: Take your medications as prescribed Follow your dietary instruction Follow activity as directed Keep your appointments as scheduled Take your immunizations and boosters as scheduled If your symptoms worsen call your PCP, if no PCP go to Urgent Care Center or Emergency Room For 04/09 questions related to your inpatient stay or results of tests pending at discharge, please contact Dr. Garry Guan MD at Smoking is Dangerous to Your Health. Avoid second hand smoking (1) Unspecified psychosis Qualifiers: Psychosis type: brief psychotic disorder Qualified Code(s): F23 - Brief psychotic disorder
== END 2018-02-26 13:00 | disposition home or self-care (01) | DRG 885 ==
LOC: NEPJ 22:00 → NEDA 02-24 09:42 → H260 02-24 13:05
PROVIDERS: ADMIT Psychiatry & Neurology Psychiatry; ATTEND Psychiatry & Neurology Psychiatry